=== PATIENT | female | born 1945 | race Caucasian/White ===

== ENCOUNTER 2024-03-18 15:51 | Emergency (ER) | payer BC, SELFPAY ==
[2024-03-18 15:57] VITALS: BP 163/79; PULSE 80; TEMP 36.6; O2SAT 98; BMI 34.7
--- NOTE | 2024-03-18 16:11 | ED_ITS ---
HPI HPI - General Adult General Chief complaint: Skin/Abscess/Foreign Body Stated complaint: Laceration Time Seen by Provider: 03/18/24 15:54 Source: patient Mode of arrival: Wheelchair History of Present Illness HPI narrative: Patient is a 78-year-old female who presents to the emergency department for bleeding from the left posterior knee after she scratched the back of her leg with her fingernail. She states she noticed a significant amount of bleeding from the area and was concerned so she panicked and came to the ER. There is no bleeding at this time and she is noted to have a punctate puncture wound over a small superficial varicose vein. Unknown last tetanus. Related Data Allergies Allergy/AdvReac Type Severity Reaction Status Date / Time amlodipine [From [facility]] Allergy Severe Swelling Verified 03/18/24 16:01 of Lip/Tongue/Throat Opioid HPI Opioid Management Most Recent Opioid Data: No Data to Display Review of Systems ROS Constitutional Denies: fever or chills Cardiovascular Denies: chest pain Respiratory Denies: shortness of breath Gastrointestinal Denies: nausea or vomiting Musculoskeletal Denies: back pain, neck pain or extremity pain Hematologic/Lymphatic Denies: easy bruising or easy bleeding Exam Narrative Exam Narrative: Gen.: Awake, alert, in no distress Head: Normocephalic, atraumatic ENT: Moist mucous membranes Respiratory: No respiratory distress Extremities: Moves extremities equally, less than 1 mm puncture wound over a small superficial varicose vein on the posterior lateral aspect of the left knee. No active bleeding. No deep lacerations. No pulsatile mass. Psych: Normal mood and affect Neuro: No focal neuro deficit Skin: Warm, dry, intact Constitutional Vital Signs, click to edit/add: Last Vital Signs Temp 97.9 F 03/18/24 15:57 Pulse 80 03/18/24 15:57 Resp 18 03/18/24 15:57 BP 163/79 H 03/18/24 15:57 Pulse Ox 98 03/18/24 15:57 Course Vital Signs Vital signs: Vital Signs Temperature 97.9 F 03/18/24 15:57 Pulse Rate 80 03/18/24 15:57 Respiratory Rate 18 03/18/24 15:57 Blood Pressure 163/79 H 03/18/24 15:57 Pulse Oximetry 98 03/18/24 15:57 Temperature 97.9 F 03/18/24 15:57 Pulse Rate 80 03/18/24 15:57 Respiratory Rate 18 03/18/24 15:57 Blood Pressure 163/79 H 03/18/24 15:57 Pulse Oximetry 98 03/18/24 15:57 Medical Decision Making MDM Narrative Medical decision making narrative: Exam is consistent with bleeding from a superficial varicose vein, no active bleeding at this time. Gelfoam and Will bandage applied and tetanus updated in the ER. Follow-up with PCP and return to the ER if symptoms change or worsen. Patient given education and reassurance. SUPERVISED APC VISIT, PHYSICIAN ATTESTATION: Based on the medical record the care appears appropriate. ? Medical Records Medical records reviewed: Yes I reviewed the patient's medical records Discharge Plan Discharge Chief Complaint: Skin/Abscess/Foreign Body Clinical Impression: Puncture wound Patient Disposition: Home, Self-Care Time of Disposition Decision: 16:11 Condition: Good Print Language: [place]ese Instructions: Puncture Wound (ED) Referrals: Physician,Non-Staff, MD [Primary Care Provider] - 1 week
[2024-03-18] MEDS: SURGIFOAM GEL SPONGE SIZE 100 1 EACH TOPICAL (16:21)
[2024-03-18] MEDS: ADACEL DIPH,PERTUSS(ACELL),TET VAC/PF 0.5 ML ADULT SYRINGE IM (16:21)
== END 2024-03-18 16:31 | disposition home or self-care (01) ==
PROVIDERS: Emergency Provider Emergency Medicine Emergency Medical Services
DX: S81.032A Puncture wound without foreign body, left knee, initial encounter (principal); W26.8XXA Contact with other sharp object(s), not elsewhere classified, initial encounter; Z23 Encounter for immunization
CPT/HCPCS: 90471; 90715; 99285